=== PATIENT | female | born 1955 | race Caucasian/White ===

== ENCOUNTER 2023-08-01 19:22 | Emergency (ER) | payer MEDICARE, OTHER ==
[2023-08-01 20:04] LABS: BASOPHILS PERCENT AUTO 0.7 % (0.0-1.0); HEMATOCRIT 33.7 % (37.0-47.0); HEMOGLOBIN 11.2 g/dL (12.0-16.0); LYMPHOCYTES PERCENT AUTO 33.3 % (20.5-50.1); MEAN CORPUSCULAR HEMOGLOBIN 30.9 pg (27.0-34.0); MEAN CORPUSCULAR HGB CONC 33.2 g/dL (33.0-35.0); MEAN CORPUSCULAR VOLUME 93.1 fL (80-100); MONOCYTES PERCENT AUTO 13.2 % (2-8); NEUTROPHILS PERCENT AUTO 50.8 % (42.2-75.2); PLATELET COUNT,PLT 124 10^3/uL (150-450); RED BLOOD CELL COUNT 3.62 10^6/uL (4.2-5.4)
[2023-08-01] MEDS: Piperacillin/Tazobactam 4.5 GM in Sodium Chloride 0.9% 100 ML IV ONE (20:18)
[2023-08-01] MEDS: Sodium Chloride 0.9% 10 ML Syringe FLUSH PRN (20:19)
[2023-08-01 20:23] LABS: A/G RATIO 0.9; ALBUMIN 3.4 g/dL (3.4-5.0); ANION GAP 13.3 mEq/L (7-13); BILIRUBIN TOTAL 0.6 mg/dL (0.2-1.0); C-REACTIVE PROTEIN 0.94 ng/dL (<=0.50); CALCIUM 8.6 mg/dL (8.5-10.1); CREATININE 1.06 mg/dL (0.55-1.02); EST CRCL DRUG DOSING (CG) 40.73 mL/min; POTASSIUM,K 4.3 mmol/L (3.5-5.1)
[2023-08-01 21:08] VITALS: BP 141/63; PULSE 84
== END 2023-08-01 21:09 | disposition home or self-care (01) ==
LOC: DL.ED 19:22
DX: L03.116 Cellulitis of left lower limb (principal); E11.628 Type 2 diabetes mellitus with other skin complications; I10 Essential (primary) hypertension; E78.00 Pure hypercholesterolemia, unspecified; K21.9 Gastro-esophageal reflux disease without esophagitis; Z79.4 Long term (current) use of insulin; Z88.5 Allergy status to narcotic agent; Z88.6 Allergy status to analgesic agent; Z88.2 Allergy status to sulfonamides; Z88.8 Allergy status to other drugs, medicaments and biological substances; Z79.82 Long term (current) use of aspirin; Z79.899 Other long term (current) drug therapy; Z90.710 Acquired absence of both cervix and uterus
CPT/HCPCS: 36415; 80053; 85025; 86140; 96365; 99283; J2543; J3490

== ENCOUNTER 2023-08-23 13:31 | Emergency (ER) | payer MEDICARE ==
[2023-08-23 13:44] VITALS: BP 167/74; PULSE 82
[2023-08-23 14:02] LABS: BASOPHILS PERCENT AUTO 0.3 % (0.0-1.0); EOSINOPHILS PERCENT AUTO 2.2 % (1.0-3.0); HEMATOCRIT 33.8 % (37.0-47.0); HEMOGLOBIN 11.2 g/dL (12.0-16.0); LYMPHOCYTES PERCENT AUTO 33.1 % (20.5-50.1); MEAN CORPUSCULAR HEMOGLOBIN 30.7 pg (27.0-34.0); MEAN CORPUSCULAR HGB CONC 33.1 g/dL (33.0-35.0); MEAN CORPUSCULAR VOLUME 92.6 fL (80-100); MONOCYTES PERCENT AUTO 12.7 % (2-8); NEUTROPHILS PERCENT AUTO 51.7 % (42.2-75.2); PLATELET COUNT,PLT 107 10^3/uL (150-450); RED BLOOD CELL COUNT 3.65 10^6/uL (4.2-5.4); WHITE BLOOD CELL COUNT,WBC 3.2 10^3/uL (5.0-10.0)
[2023-08-23 14:26] LABS: ANION GAP 14.3 mEq/L (7-13); C-REACTIVE PROTEIN 0.53 ng/dL (<=0.50); CALCIUM 9.1 mg/dL (8.5-10.1); CREATININE 0.92 mg/dL (0.55-1.02); EST CRCL DRUG DOSING (CG) 46.93 mL/min; POTASSIUM,K 4.3 mmol/L (3.5-5.1)
[2023-08-23] MEDS: Take Home: Amoxicillin/Clavulanate K 875-125 MG Tab, 6 Tab Pack PO ONE (14:57)
== END 2023-08-23 15:01 | disposition home or self-care (01) ==
LOC: DL.ED 13:31
DX: E11.628 Type 2 diabetes mellitus with other skin complications (principal); L03.116 Cellulitis of left lower limb; I10 Essential (primary) hypertension; E78.00 Pure hypercholesterolemia, unspecified; Z90.710 Acquired absence of both cervix and uterus; Z79.84 Long term (current) use of oral hypoglycemic drugs; Z79.899 Other long term (current) drug therapy; Z88.6 Allergy status to analgesic agent; Z88.5 Allergy status to narcotic agent; Z88.2 Allergy status to sulfonamides; Z88.8 Allergy status to other drugs, medicaments and biological substances
CPT/HCPCS: 36415; 80048; 84550; 85025; 86140; 99283; A9270